=== PATIENT | female | born 1945 | race Caucasian/White ===

== ENCOUNTER 2021-01-10 15:11 | Emergency (ER) | payer MEDICARE, OTHER ==
[~2021-01-10 15:11] MED LIST: BIOTIN1 M1 PO; CALTRATE 600 +1 EACH PO; COZAAR100 MG PO; HCTZ25 MG PO; LOPRESSOR50 MG PO; NORCO 7.5-3251 EACH PO; PROTONIX 40MG T40 MG PO; SAVAYSA60 MG PO
[2021-01-10 15:36] LABS: BASOPHIL 0.9 % (0-2); EOSINOPHIL 2.7 % (0-7); HCT 40.5 % (37.0-47.0); HGB 14.3 g/dl (12.5-16.0); MCH 33.6 pg (25.0-31.0); MCHC 35.3 g/dL (32.0-36.0); MCV 95.3 fL (78.0-100.0); MONOCYTE 13.1 % (0-12); MPV 11.2 fL (6.0-9.5); NEUTROPHIL 47.1 % (41-80); NRBC 0; PLT 142 K/uL (150-400); RBC 4.25 M/uL (4.20-5.40); WBC 4.4 K/uL (4.0-10.5)
[2021-01-10 15:38] LABS: LYMPHOCYTE 35.7 % (15-48)
[2021-01-10 15:48] LABS: ALBUMIN 4.1 g/dL (3.4-5.0); BILIRUBIN - TOTAL 1.2 mg/dL (0.2-1.0); BUN/CREAT RATIO (CALC) 24.6 RATIO; CREATININE 1.26 mg/dL (0.51-0.95); GLOBULIN (CALCULATION) 3.2 g/dL; POTASSIUM 3.1 mmol/L (3.5-5.1); TOTAL PROTEIN 7.3 g/dL (6.4-8.2)
[2021-01-10 15:57] LABS: PRO-BNP 402 pg/mL (<450)
[2021-01-10 17:36] LABS: BILIRUBIN NEGATIVE (NEGATIVE); BLOOD 1+ Ery/uL (NEGATIVE); CLARITY CLEAR (CLEAR); COLOR YELLOW (YELLOW); GLUCOSE (U) NORMAL (NORMAL); LEUKOCYTES NEGATIVE Leu/uL (NEGATIVE); NITRITE NEGATIVE (NEGATIVE); PROTEIN NEGATIVE (NEGATIVE); UROBILINOGEN 0.2 mg/dL (0.2-1.0)
[2021-01-10 17:45] LABS: BACTERIA TRACE; SQUAMOUS EPITHELIAL CELLS RARE
[2021-01-10] MEDS ORDERED: K-DUR20 MEQ PO (18:02)
== END 2021-01-10 18:22 | disposition home or self-care (01) ==
LOC: FER 15:11
PROVIDERS: Emergency Medicine; Nurse Practitioner Family
DX: R06.02 Shortness of breath (principal); E87.6 Hypokalemia; I10 Essential (primary) hypertension; I48.91 Unspecified atrial fibrillation; Z85.3 Personal history of malignant neoplasm of breast
CPT/HCPCS: 36415; 71045; 80053; 81001; 83605; 83880; 84145; 84484; 85025; 85379; 87040; 93005

== ENCOUNTER 2021-02-23 12:13 | Emergency (ER) | payer MEDICARE, OTHER ==
[~2021-02-23 12:13] MED LIST changes: +K-DUR20 MEQ PO
[2021-02-23 13:26] LABS: BILIRUBIN NEGATIVE (NEGATIVE); BLOOD 3+ Ery/uL (NEGATIVE); CLARITY CLOUDY (CLEAR); COLOR RED (YELLOW); GLUCOSE (U) NORMAL (NORMAL); LEUKOCYTES TRACE Leu/uL (NEGATIVE); NITRITE NEGATIVE (NEGATIVE); PROTEIN 3+ mg/dL (NEGATIVE); UROBILINOGEN 0.2 mg/dL (0.2-1.0); pH 6.5 (5.0-9.0)
[2021-02-23 13:27] LABS: URINARY RBC TNTC
[2021-02-23 13:28] LABS: URINARY WBC 20-50
[2021-02-23 13:29] LABS: BACTERIA TRACE
[2021-02-23 13:37] LABS: BASOPHIL 0.6 % (0-2); EOSINOPHIL 0.4 % (0-7); HCT 41.5 % (37.0-47.0); LYMPHOCYTE 6.2 % (15-48); MCH 33.7 pg (25.0-31.0); MCHC 33.7 g/dL (32.0-36.0); MONOCYTE 7.9 % (0-12); MPV 11.5 fL (6.0-9.5); NEUTROPHIL 84.5 % (41-80); NRBC 0; PLT 197 K/uL (150-400); RBC 4.15 M/uL (4.20-5.40)
[2021-02-23 13:47] LABS: BUN/CREAT RATIO (CALC) 24.1 RATIO; CREATININE 0.79 mg/dL (0.51-0.95); POTASSIUM 3.5 mmol/L (3.5-5.1)
[2021-02-23] MEDS ORDERED: CEFDINIR300 MG PO (14:42)
== END 2021-02-23 15:20 | disposition home or self-care (01) ==
LOC: FER 12:13
PROVIDERS: Nurse Practitioner Family
DX: N30.91 Cystitis, unspecified with hematuria (principal); I10 Essential (primary) hypertension; I48.91 Unspecified atrial fibrillation; Z79.899 Other long term (current) drug therapy
CPT/HCPCS: 36415; 80048; 81001; 85025; 87077; 87088; 87186; J0696